=== PATIENT | male | born 1980 | race African-American/Black ===

== ENCOUNTER 2019-11-11 01:42 | Emergency (ER) | payer MEDICAID ==
[~2019-11-11] VITALS: Ht 188 cm; Wt 95.3 kg
[2019-11-11 02:14] VITALS: BP 144/94
[2019-11-11 03:35] LABS: Urine Bacteria NONE SEEN /hpf (None Seen); Urine Blood Negative /uL (Negative); Urine Mucus FEW (None Seen); Urine Specific Gravity 1.018 (1.001-1.035); Urine WBC 21 /hpf (0 - 3)
== END 2019-11-11 03:33 | disposition left against medical advice (07) ==
LOC: ER 01:46
DX: N50.89 Other specified disorders of the male genital organs (principal); Z53.21 Procedure and treatment not carried out due to patient leaving prior to being seen by health care provider
CPT/HCPCS: 81001

== ENCOUNTER 2021-03-05 09:56 | Emergency (ER) | payer MEDICAID ==
[~2021-03-05] VITALS: Ht 188 cm; Wt 94.8 kg
[2021-03-05 12:04] LABS: Basophils # (auto) 0 10 ^3/uL (0-0.2); Basophils % (auto) 0.5 % (0.0-2.0); Eosinophils # (auto) 0.1 10 ^3/uL (0-0.8); Eosinophils % (auto) 0.9 % (0.0-7.0); Hematocrit 49.8 % (41.0-53.0); Hemoglobin 16.7 g/dL (13.5-17.5); Lymphocytes # (auto) 1.4 10 ^3/uL (0.4-5.4); Lymphocytes % (auto) 17.9 % (10.0-50.0); Mean Corpuscular Hemoglobin 30.3 pg (28.0-32.0); Mean Corpuscular Hgb Conc. 33.5 g/dL (32.0-36.0); Mean Corpuscular Volume 90.3 fL (80.0-100.0); Monocytes # (auto) 0.5 10 ^3/uL (0-1.3); Monocytes % (auto) 6.8 % (0.0-12.0); Neutrophils # (auto) 5.8 10 ^3/uL (1.6-8.6); Neutrophils % (auto) 73.9 % (37.0-80.0); Nucleated Red Blood Cells % 0.1 %; Red Blood Cells 5.51 10^6/uL (4.5-5.90); Red Cell Distribution Width 12.6 % (11.8-14.3); White Blood Cell 7.9 10^3/uL (4.4-10.8)
[2021-03-05 12:29] LABS: Albumin 3.7 g/dL (3.4-5.0); Calcium 9.1 mg/dL (8.5-10.1); Potassium 4.7 mmol/L (3.5-5.1)
[2021-03-05 12:34] LABS: BUN/Creatinine Ratio 17.3; Bilirubin, Total 0.3 mg/dL (0.2-1.0); Total Protein 7.2 g/dL (6.4-8.2)
[2021-03-05 13:23] VITALS: BP 131/86
[2021-03-05] MEDS ORDERED: cefTRIAXone SOD 1,000 MG VL IM ONE (15:00)
== END 2021-03-05 15:44 | disposition home or self-care (01) ==
LOC: ER 09:56
DX: N45.1 Epididymitis (principal); F17.210 Nicotine dependence, cigarettes, uncomplicated; F12.10 Cannabis abuse, uncomplicated
CPT/HCPCS: 36415; 76870; 80053; 85025; 96372; 99284; J0696

== ENCOUNTER 2024-10-05 06:42 | Emergency (ER) | payer MEDICAID ==
[~2024-10-05] VITALS: Ht 188 cm; Wt 92.8 kg
[~2024-10-05 06:42] MED LIST: ACET1CAP14 PO; CEPH-510 PO
--- NOTE | 2024-10-05 07:12 | ED.PDOC ---
Musculoskeletal HPI Comments 43-year-old right-hand dominant male with a history of chronic back and shoulder pain presents the ED if for the chief complaint of atraumatic left elbow swelling. Patient states symptoms started five days ago after watching his daughters basketball game at the gym". Patient notes of pain with flexion- extension but no TTP. No other associated modifiers, factors, or symptoms. Denies fevers chills night sweats nausea vomiting redness around the shoulder Denies previous surgeries Numbness/tingling down the arm Denies changes, shortness of breath Time Seen by MD: 07:01 Primary Care Provider: STONE Reviewed Notes: Nurses Notes, Medications, Allergies Allergies: Coded Allergies: NO KNOWN ALLERGIES (Unverified , 07/28/12) Home Meds Active Scripts Acetaminophen (Tylenol) 325 Mg Cap, 325 MG PO Q4HPRN PRN, #30 CAP 0 Refills Take 1-2 caps po q4h prn for pain/fever (Do not exceed 3,000mg of acetaminophen in 24 hours) Prov:LILIBETH VAZQUEZ DINING ROOM SERVER 06/03/22 Cephalexin ( Keflex 500) 500 Mg Cap, 1 CAP PO QID for 7 Days, #28 CAP 0 Refills Prov:LILIBETH VAZQUEZ DINING ROOM SERVER 06/03/22 Information Source: Patient Mode of Arrival: Ambulatory Location: Left Extremity Location: Elbow Timing: Days Prehospital treatment: None Severity: Mild Able to Move Extremity: Yes Bear Weight: Fully Pain: Moderate Hand Dominance: Right Mechanism: Unknown, Spontaneous Circumstances: Spontaneous, Unknown Symptoms: Swelling, Pain DVT Risk Factors: NONE Last Tetanus: Unknown Associated signs and symptoms: Elbow pain Past Medical History PAST MEDICAL HISTORY: Denies Surgical History: Denies all surgeries Family History Family History: Unknown Social History Smoker: Cigarettes, Less Than 1 Pack/Day Alcohol: Occasionally Drugs: Marijuana Lives In: Home Constitutional: denies: chills, diaphoresis, fatigue, fever, malaise, sweats, weakness, others EENTM: denies: blurred vision, double vision, ear bleeding, ear discharge, ear drainage, ear pain, ear ringing, eye pain, eye redness, hearing loss, mouth pain, mouth swelling, nasal discharge, nose bleeding, nose congestion, nose pain, photophobia, tearing, throat pain, throat swelling, voice changes, others Respiratory: denies: cough, hemoptysis, orthopnea, SOB at rest, shortness of breath, SOB with excertion, stridor, wheezing, others Cardiovascular: denies: chest pain, dizzy spells, diaphoresis, Dyspnea on exertion, edema, irregular heart beat, left arm pain, lightheadedness, palpitations, PND, syncope, others Gastrointestinal: denies: abdomen distended, abdominal pain, blood streaked bowels, constipated, diarrhea, dysphagia, difficulty swallowing, hematemesis, melena, nausea, poor appetite, poor fluid intake, rectal bleeding, rectal pain, vomiting, others Genitourinary: denies: burning, dysuria, flank pain, frequency, hematuria, incontinence, penile discharge, penile sore, pain, testicle pain, testicle swelling, urgency, others Neurological: denies: dizziness, fainting, headache, left sided numbness, left sided weakness, numbness, paresthesia, pre-existing deficit, right sided numbness, right sided weakness, seizure, speech problems, tingling, tremors, weakness, others Musculoskeletal: reports: others (Left elbow pain); denies: back pain, gout, joint pain, joint swelling, muscle pain, muscle stiffness, neck pain Integumetry: denies: bruises, change in color, change in hair/nails, dryness, laceration, lesions, lumps, rash, wounds, others Allergic/Immunocompromised: denies: Difficulty Healing, Frequent Infections, Hives, Itching, others Hematologic/Lymphatic: denies: anemia, blood clots, easy bleeding, easy bruising, swollen glands, others Endocrine: denies: excessive hunger, excessive sweating, excessive thirst, excessive urination, flushing, intolerance to cold, intolerance to heat, unexplained weight gain, unexplained weight loss, others Psychiatric: denies: anxiety, bipolar disorder, depression, hopeless, panic disorder, schizophrenia, sleepless, suicidal, others All Other Systems: Reviewed and Negative Physical Exam General Appearance: Mild Distress, Normal HEENT: Normal ENT Inspection, Pharynx Normal, TMs Normal Neck: Full Range of Motion, Non-Tender, Normal, Normal Inspection Respiratory: Chest Non-Tender, Lungs Clear, No Accessory Muscle Use, No Respiratory Distress, Normal Breath Sounds Cardiovascular: No Murmur, No Gallop, Regular Rate/Rhythm Breast Exam: Deferred Gastrointestinal: Non Tender, No Pulsatile Mass, Normal Bowel Sounds, Soft Genitalia: Deferred Pelvic: Deferred Rectal: Deferred Extremities: No calf tenderness, Normal capillary refill, Non-tender, No pedal edema Musculoskeletal : Location: Left Extremity Location: Elbow (Epicondyle: Noticeable swelling, fluctuant to palpation, areas approximately 2 x 2 cm, no TTP, no erythema, full passive and active range of motion of the elbow, radial pulses 2+ and neurovascularly sensation is intact) Apperance: Normal Neurologic: Alert, No Motor Deficits, Normal Affect, Normal Mood, No Sensory Deficits Cerebellar Function: Normal Reflexes: Normal Skin: Dry, Normal Color, Warm Lymphatic: No Adenopathy Was a procedure done? Was a procedure done?: Yes Sedation Sedation?: No Other Procedure Procedure Left elbow bursitis drainage Indication Drainage Anesthetic 1% lidocaine without epi Prep Sterile gloves, 18 gauge needle, 2 x 2 gauze, drainage syringe Success 10 cc's of serosanguineous drainage was removed Informed consent obtained: Yes Risks, benefits, and alternati: Yes Differential Diagnosis EXT Differential Diagnosis: Cellulitis, Deep Vein Thrombosis, Fracture, Sprain, Dislocation, Gout, Contusion, Strain, Rheumatoid, Neurovascular injury, Bursitis X-Ray, Labs, Meds, VS Vital Signs Date Time Temp Pulse Resp B/P (MAP) Pulse Ox O2 Delivery O2 Flow Rate FiO2 10/05/24 09:00 70 17 99 Room Air 10/05/24 09:00 98.4 70 16 117/75 (89) 97 98.4 10/05/24 07:05 98.3 78 16 123/79 (94) 99 98.3 Lab Test 10/05/24 07:11 Range/Units White Blood Count 8.2 4.4-10.8 10^3/uL Red Blood Count 5.37 4.5-5.90 10^6/uL Hemoglobin 17.2 13.5-17.5 g/dL Hematocrit 48.6 41.0-53.0 % Mean Corpuscular Volume 90.6 80.0-100.0 fL Mean Corpuscular Hemoglobin 32.0 28.0-32.0 pg Mean Corpuscular Hemoglobin Concent 35.4 32.0-36.0 g/dL Red Cell Distribution Width 13.3 11.8-14.3 % Platelet Count 265 140-450 10^3/uL Mean Platelet Volume 7.7 6.9-10.8 fL Neutrophils (%) (Auto) 66.3 37.0-80.0 % Lymphocytes (%) (Auto) 23.5 10.0-50.0 % Monocytes (%) (Auto) 8.1 0.0-12.0 % Eosinophils (%) (Auto) 1.4 0.0-7.0 % Basophils (%) (Auto) 0.7 0.0-2.0 % Neutrophils # (Auto) 5.4 1.6-8.6 10 ^3/uL Lymphocytes # (Auto) 1.9 0.4-5.4 10 ^3/uL Monocytes # (Auto) 0.7 0-1.3 10 ^3/uL Eosinophils # (Auto) 0.1 0-0.8 10 ^3/uL Basophils # (Auto) 0.1 0-0.2 10 ^3/uL Nucleated Red Blood Cells 0.0 % Sodium Level 144 136-145 mmol/L Potassium Level 3.5 3.5-5.1 mmol/L Chloride Level 108 H 98-107 mmol/L Carbon Dioxide Level 27 20-31 mmol/L Anion Gap 9 5-15 Blood Urea Nitrogen 12 9-23 mg/dL Creatinine 1.37 H 0.700-1.30 mg/dL Glomerular Filtration Rate Calc 65 >90 mL/min BUN/Creatinine Ratio 8.8 L 10.0-20.0 Serum Glucose 134 H 74-106 mg/dL Uric Acid 6.8 3.7-9.2 mg/dL Calcium Level 9.9 8.7-10.4 mg/dL X-Ray, Labs, Meds, VS Comment 43-year-old right-hand dominant male with a history of chronic back and shoulder pain presents the ED if for the chief complaint of left elbow pain with notable bursitis. Patient arrives alert and oriented, ABC's intact, afebrile, vital signs stable, saturating well in room air CBC was ordered to exclude anemia, blood loss, or infection. BMP was ordered to exclude electrolyte abnormalities, renal failure, dehydration, hyperglycemia Uric acid was ordered to rule out gout: Left elbow x-ray ordered to rule out fracture: Diagnostic imaging ordered by me and results interpreted by radiology :FINDINGS/IMPRESSION: : There is no evidence of acute fracture or dislocation. Soft tissues are unremarkable. Well appearing, vitals wnl, non-toxic Concern for aseptic bursitis likely secondary to repetitive trauma. Low concern for fracture. No erythema. Consider less likely gout or arthritis Differential diagnoses does include septic bursa, but his specific symptoms suggest that aseptic brusitis I have considered a diagnostic aspiration to confirm the diagnosis, but there is a small but real risk of bleeding, infection and little pre-test likelihood of septic joint/bursa, so patient and I agreed to a ice, trial of nsaids, elbow protection. Xray ordered without acute fracture or dislocation per my preliminary read Discussed the results with the patient and the patient vocalized understanding. Patient in agreement with the plan and all questions answered. I also discussed with the patient the limitations of the tests and of the workup performed today, including the chances of false negatives and that examination and treatment that they have received in the Emergency Department is not intended to be a substitute for an effort to provide complete medical care. The imaging, if any, have been interpreted on a preliminary basis pending final reading by the radiologistThe patient was instructed to return immediately to the ED if any changes or worsening of condition should occur.Stressed the importance of outpatient followup and strict return precautions. On reevaluation, patient had symptomatic improvement. Patient is stable for discharge at this time. External notes reviewed. Test results and diagnostic imaging interpreted. All diagnostic findings, discharge care, education and instructions provided Follow-up with PCP in 2 to 3 days Patient verbalized understanding and agreed to treatment plan Vital signs stable, afebrile, no acute distress noted Patient ambulatory with strong steady gait Advised to return precautions for any new or worsening symptoms, return to ER immediately for re-evaluation Patient is aware that the purpose of this visit was for an acute medical emergency requiring emergent stabilization. Chronic conditions, including malignancies have not been ruled out. Patient is instructed to follow up with PCP as directed and discharge instructions for continued care and workup. If unable to arrange follow-up, patient is to return to the emergency department for reassessment. Patient (parent or legal guardian if applicable) was given verbal and written discharge instructions and acknowledges understanding. Additional MDM Review of External, Non-ED records: External records reviewed. Discussion with independent historian (EMS, family) history obtained from the p atient/parents (if applicable) at bedside Chronic conditions affecting care: None Social determinants of health affecting care: None Time of 1ST Reevaluation: 07:32 Reevaluation 1ST: Unchanged Patient Education/Counseling: Diagnosis, Treatment, Need For Follow Up Family Education/Counseling: No Family Present Departure 1 Departure Time of Disposition: 08:44 Impression: Primary Impression: Olecranon bursitis, left elbow Disposition: HOME / SELF CARE / HOMELESS Condition: Stable Critical Care Note Critical Care Time?: No Stability Stability form required: No Heart Score Heart Score: Heart Score Response (Comments) Value History N/A 0 EKG N/A 0 Age N/A 0 Risk Factors N/A 0 Troponin N/A 0 Total 0 I personally scribed for ELSA JULIO CADMIUM PLATER ([email or web address]) on 10/05/24 at 07:12. Elec tronically submitted by Huang Shearer ([email or web address]). I personally scribed for ELSA JULIO CADMIUM PLATER ([email or web address]) on 10/05/24 at 07:37. Elec tronically submitted by Huang Shearer ([email or web address]). I personally scribed for ELSA JULIO CADMIUM PLATER ([email or web address]) on 10/05/24 at 07:39. Elec tronically submitted by Huang Shearer ([email or web address]). I personally scribed for ELSA JULIO CADMIUM PLATER ([email or web address]) on 10/05/24 at 07:58. Elec tronically submitted by Huang Shearer ([email or web address]). I personally scribed for ELSA JULIO CADMIUM PLATER ([email or web address]) on 10/05/24 at 08:34. Elec tronically submitted by Huang Shearer ([email or web address]). I personally scribed for ELSA JULIO F CADMIUM PLATER ([email or web address]) on 10/05/24 at 08:40. Elec tronically submitted by Huang Shearer ([email or web address]). I personally scribed for ELSA JULIO CADMIUM PLATER ([email or web address]) on 10/05/24 at 08:42. Elec tronically submitted by Huang Shearer ([email or web address]). ELSA JULIO CADMIUM PLATER Oct 05, 2024 07:12
[2024-10-05 07:28] LABS: Hematocrit 48.6 % (41.0-53.0); Hemoglobin 17.2 g/dL (13.5-17.5); Mean Corpuscular Hemoglobin 32.0 pg (28.0-32.0); Mean Corpuscular Volume 90.6 fL (80.0-100.0); Nucleated Red Blood Cells % 0.0 %
[2024-10-05 07:32] LABS: Sodium 144 mmol/L (136-145)
[2024-10-05 07:33] LABS: Anion Gap 9 (5-15); Carbon Dioxide 27 mmol/L (20-31)
[2024-10-05 07:34] LABS: Calcium 9.9 mg/dL (8.7-10.4)
[2024-10-05 07:35] LABS: Chloride 108 mmol/L (98-107); Potassium 3.5 mmol/L (3.5-5.1)
--- NOTE | 2024-10-05 07:36 | DVH ---
CLINICAL INDICATION: Pain, elbow TECHNIQUE: XY L ELBOW 3 VIEW XRAY Comparison: None FINDINGS/IMPRESSION: : There is no evidence of acute fracture or dislocation. Soft tissues are unremarkable. Limited lateral view.
[2024-10-05 07:39] LABS: BUN/Creatinine Ratio 8.8 (10.0-20.0); Blood Urea Nitrogen 12 mg/dL (9-23); Glucose 134 mg/dL (74-106)
[2024-10-05 07:51] LABS: Uric Acid 6.8 mg/dL (3.7-9.2)
[2024-10-05 09:00] VITALS: BP 117/75; PULSE 70; RESP 17; TEMP 98.4; O2SAT 99
== END 2024-10-05 09:03 | disposition home or self-care (01) ==
LOC: ER 06:42
DX: M70.22 Olecranon bursitis, left elbow (principal); F17.210 Nicotine dependence, cigarettes, uncomplicated; F12.90 Cannabis use, unspecified, uncomplicated; F10.90 Alcohol use, unspecified, uncomplicated; Y93.89 Activity, other specified; Y90.9 Presence of alcohol in blood, level not specified
CPT/HCPCS: 10060; 20605; 36415; 73080; 80048; 84550; 85025

== ENCOUNTER 2024-11-29 09:33 | Emergency (ER) | payer MEDICAID ==
[~2024-11-29] VITALS: Ht 188 cm; Wt 93.8 kg
[2024-11-29 09:34] VITALS: BP 164/101; PULSE 98; RESP 19; TEMP 97.5; O2SAT 96
--- NOTE | 2024-11-29 10:12 | ED.PDOC ---
Musculoskeletal HPI Comments 43 year old male presents to the ED with a chief complaint of LT shoulder pain onset 1 week. Patient states he has a tear on LT shoulder, is being treated by pain management, surgery has been recommended. Patient states he was carrying heavy bags, noticed LT shoulder pain worsened. Denies any PMHx as well as fall, numbness/tingling, fever, chills, chest pain, shortness of breath. no other symptoms or modifying factors present at this time. Chief Complaint: Upper Extremity Time Seen by MD: 10:00 Primary Care Provider: STONE Reviewed Notes: Medications, Allergies Allergies: Coded Allergies: NO KNOWN ALLERGIES (Unverified , 07/28/12) Home Meds Active Scripts Acetaminophen (Tylenol) 325 Mg Cap, 325 MG PO Q4HPRN PRN, #30 CAP 0 Refills Take 1-2 caps po q4h prn for pain/fever (Do not exceed 3,000mg of acetaminophen in 24 hours) Prov:LILIBETH VAZQUEZ SIGNS AND DISPLAYS SALESPERSON 06/03/22 Cephalexin ( Keflex 500) 500 Mg Cap, 1 CAP PO QID for 7 Days, #28 CAP 0 Refills Prov:LILIBETH VAZQUEZ SIGNS AND DISPLAYS SALESPERSON 06/03/22 Information Source: Patient Mode of Arrival: Ambulatory Location: Left Extremity Location: Shoulder Timing: Weeks Prehospital treatment: None Severity: Moderate Able to Move Extremity: Yes Bear Weight: Limited Pain: Moderate Mechanism: Lifting Circumstances: Spontaneous Onset of Symptoms: After Trauma Symptoms: Pain DVT Risk Factors: NONE History of: Shoulder Fracture Past Medical History PAST MEDICAL HISTORY: Denies Surgical History: Denies all surgeries Family History Family History: Unknown Social History Smoker: Cigarettes, Less Than 1 Pack/Day Alcohol: Occasionally Drugs: Marijuana Lives In: Home Constitutional: denies: chills, diaphoresis, fatigue, fever, malaise, sweats, weakness, others EENTM: denies: blurred vision, double vision, ear bleeding, ear discharge, ear drainage, ear pain, ear ringing, eye pain, eye redness, hearing loss, mouth pain, mouth swelling, nasal discharge, nose bleeding, nose congestion, nose pain, photophobia, tearing, throat pain, throat swelling, voice changes, others Respiratory: denies: cough, hemoptysis, orthopnea, SOB at rest, shortness of breath, SOB with excertion, stridor, wheezing, others Cardiovascular: denies: chest pain, dizzy spells, diaphoresis, Dyspnea on exertion, edema, irregular heart beat, left arm pain, lightheadedness, palpitations, PND, syncope, others Gastrointestinal: denies: abdomen distended, abdominal pain, blood streaked bowels, constipated, diarrhea, dysphagia, difficulty swallowing, hematemesis, melena, nausea, poor appetite, poor fluid intake, rectal bleeding, rectal pain, vomiting, others Genitourinary: denies: burning, dysuria, flank pain, frequency, hematuria, incontinence, penile discharge, penile sore, pain, testicle pain, testicle swelling, urgency, others Neurological: denies: dizziness, fainting, headache, left sided numbness, left sided weakness, numbness, paresthesia, pre-existing deficit, right sided numbness, right sided weakness, seizure, speech problems, tingling, tremors, weakness, others Musculoskeletal: reports: others (LT shoulder pain); denies: back pain, gout, joint pain, joint swelling, muscle pain, muscle stiffness, neck pain Integumetry: denies: bruises, change in color, change in hair/nails, dryness, laceration, lesions, lumps, rash, wounds, others Allergic/Immunocompromised: denies: Difficulty Healing, Frequent Infections, Hives, Itching, others Hematologic/Lymphatic: denies: anemia, blood clots, easy bleeding, easy bruising, swollen glands, others Endocrine: denies: excessive hunger, excessive sweating, excessive thirst, excessive urination, flushing, intolerance to cold, intolerance to heat, unexplained weight gain, unexplained weight loss, others Psychiatric: denies: anxiety, bipolar disorder, depression, hopeless, panic disorder, schizophrenia, sleepless, suicidal, others All Other Systems: Reviewed and Negative Physical Exam General Appearance: No Apparent Distress, Normal HEENT: Normal ENT Inspection, Pharynx Normal, TMs Normal Neck: Full Range of Motion, Non-Tender, Normal, Normal Inspection Respiratory: Chest Non-Tender, Lungs Clear, No Accessory Muscle Use, No Respiratory Distress, Normal Breath Sounds Cardiovascular: No Edema, No JVD, No Murmur, No Gallop, Normal Peripheral Pulses, Regular Rate/Rhythm Breast Exam: Deferred Gastrointestinal: No Organomegaly, Non Tender, No Pulsatile Mass, Normal Bowel Sounds, Soft Genitalia: Epididymis, Deferred Pelvic: Deferred Rectal: Deferred Extremities: No calf tenderness, Normal capillary refill, No pedal edema, Tender (LT shoulder) Musculoskeletal : Apperance: Normal Neurologic: Alert, chemical dependency therapist II-XII nml as Tested, No Motor Deficits, Normal Affect, Normal Mood, No Sensory Deficits Cerebellar Function: Normal Reflexes: Normal Skin: Dry, Normal Color, Warm Lymphatic: No Adenopathy Was a procedure done? Was a procedure done?: No Differential Diagnosis EXT Differential Diagnosis: Fracture, Sprain, Dislocation, Strain X-Ray, Labs, Meds, VS Vital Signs Date Time Temp Pulse Resp B/P (MAP) Pulse Ox O2 Delivery O2 Flow Rate FiO2 11/29/24 09:34 97.5 98 19 164/101 96 97.5 Current Medications Medications (Trade) Dose Ordered Sig/Renae Route Start Time Stop Time Status Last Admin Ketorolac Tromethamine (Toradol Injection) 15 mg ONCE ONCE IM 11/29/24 10:15 11/29/24 10:16 DC 11/29/24 11:42 Time of 1ST Reevaluation: 10:30 Reevaluation 1ST: Unchanged Patient Education/Counseling: Diagnosis, Treatment, Prognosis Family Education/Counseling: No Family Present Departure 1 Departure Time of Disposition: 13:21 (Patient with shoulder strain. We will discharge patient home with outpatient follow up) Impression: Primary Impression: Sprain of left shoulder Qualified Codes: S43.402A - Unspecified sprain of left shoulder joint, initial encounter Disposition: HOME / SELF CARE / HOMELESS Condition: Stable Referrals: BJORN ESTRADA MD Additional Instructions: You sprained your shoulder. It is important to follow up with the regular doctors. You were referred to orthopedics. Please call for an appointment.For pain you can take the followinam: Ibuprofen 400mg with food Noon: Acetaminophen 1000mg 4pm: Ibuprofen 400mg with food 8pm: Acetaminophen 1000mg You should follow up with your regular doctor within one week to ensure you are doing better. If your symptoms worsen or you have any other concerns then please return to the ER. Discharged With: Self Critical Care Note Critical Care Time?: No Stability Stability form required: No Heart Score Heart Score: Heart Score Response (Comments) Value History N/A 0 EKG N/A 0 Age N/A 0 Risk Factors N/A 0 Troponin N/A 0 Total 0 I personally scribed for MARGE SEAY MD ([email or web address]) on 11/29/24 at 10:12. Electronically submitted by Netta Choi ([email or web address]). MARGE SEAY MD Nov 29, 2024 10:12
[2024-11-29] MEDS: KETOROLAC TROMETH 30 MG/ML 1ML VIAL IM ONE (11:42)
== END 2024-11-29 16:39 | disposition left against medical advice (07) ==
LOC: ER 09:33
DX: S43.402A Unspecified sprain of left shoulder joint, initial encounter (principal); F17.210 Nicotine dependence, cigarettes, uncomplicated; X58.XXXA Exposure to other specified factors, initial encounter; Y93.89 Activity, other specified; Y92.89 Other specified places as the place of occurrence of the external cause; Y99.8 Other external cause status
CPT/HCPCS: 96372; 99283; J1885

== ENCOUNTER 2025-01-06 15:36 | Emergency (ER) | payer MEDICAID ==
[~2025-01-06] VITALS: Ht 188 cm; Wt 98.3 kg
[2025-01-06] MEDS ORDERED: CEPH500C PO (16:18)
[2025-01-06] MEDS ORDERED: NAPR-746 PO (16:18)
[2025-01-06] MEDS: KETOROLAC TROMETH 60MG/2ML VIAL IM ONE (16:24)
[2025-01-06 16:32] VITALS: BP 123/83; PULSE 90; RESP 18; TEMP 98.5; O2SAT 98
--- NOTE | 2025-01-07 11:18 | ED.PDOC ---
Musculoskeletal HPI Comments A 44 YEAR OLD MALE PRESENTS TO THE ED WITH COMPLAINT OF CHRONIC LEFT SHOULDER PAIN AND RIGHT ELBOW PAIN AND SWELLING. PATIENT STATES HE HAS A HISTORY OF A LEFT ROTATOR CUFF INJURY AND HAS BEEN EXPERIENCING LEFT SHOULDER PAIN A RESULT OFF AND ON FOR THE PAST 1 MONTH. PATIENT IS REQUESTING A TORADOL INJECTION TO MANAGE HIS CHRONIC LEFT SHOULDER PAIN. PATIENT REPORTS HE HAS ALSO BEEN EXPERIENCING RIGHT ELBOW PAIN WITH SWELLING DUE TO BUMP HIS RIGHT ELBOW TODAY AND IS REQUESTING THAT THE FLUID IN HIS RIGHT ELBOW BE DRAINED. PATIENT DENIES FEVER, CHILLS, SHORTNESS OF BREATH, CHEST PAIN, ABDOMINAL PAIN, NAUSEA, VOMITING, HEADACHE, OR OTHER COMPLAINTS. NO OTHER SYMPTOMS OR MODIFYING FACTORS AT THIS TIME. PATIENT IS ALERT, ORIENTED X 4, AND HAS STEADY GAIT. Chief Complaint: Upper Extremity Time Seen by MD: 15:37 Primary Care Provider: STONE Dia Notes: Nurses Notes, Medications, Allergies Allergies: Coded Allergies: NO KNOWN ALLERGIES (Unverified , 07/28/12) Home Meds Active Scripts Naproxen (Naproxen) 500 Mg Tab, 500 MG PO BID, #30 TAB Prov:ASHWIN BRAUN 01/06/25 Cephalexin Monohydrate (Cephalexin) 500 Mg Cap, 1 CAP PO QID, #32 CAP Prov:ASHWIN BRAUN 01/06/25 Acetaminophen (Tylenol) 325 Mg Cap, 325 MG PO Q4HPRN PRN, #30 CAP 0 Refills Take 1-2 caps po q4h prn for pain/fever (Do not exceed 3,000mg of acetaminophen in 24 hours) Prov:LILIBETH VAZQUEZ [employer] PACKER 06/03/22 Cephalexin ( Keflex 500) 500 Mg Cap, 1 CAP PO QID for 7 Days, #28 CAP 0 Refills Prov:LILIBETH VAZQUEZ [employer] BUBBLE PACKER 06/03/22 Information Source: Patient Mode of Arrival: Ambulatory Location: Left, Right Extremity Location: Elbow (RIGHT ELBOW), Shoulder (LEFT SHOULDER) Timing: Days, Weeks Prehospital treatment: None Severity: Moderate Able to Move Extremity: Yes Bear Weight: Fully Pain: Moderate Mechanism: No Trauma, Spontaneous Circumstances: Spontaneous Symptoms: Swelling, Pain DVT Risk Factors: NONE Last Tetanus: Unknown Associated signs and symptoms: Shoulder pain, Elbow pain Past Medical History Past Medical History (Other): LEFT ROTATOR CUFF INJURE Surgical History: Denies all surgeries Family History Family History: Reviewed,noncontributory to illness Social History Smoker: Cigarettes, Less Than 1 Pack/Day Alcohol: Occasionally Drugs: Marijuana Lives In: Home Constitutional: denies: chills, diaphoresis, fatigue, fever, malaise, sweats, weakness, others EENTM: denies: blurred vision, double vision, ear bleeding, ear discharge, ear drainage, ear pain, ear ringing, eye pain, eye redness, hearing loss, mouth pain, mouth swelling, nasal discharge, nose bleeding, nose congestion, nose pain, photophobia, tearing, throat pain, throat swelling, voice changes, others Respiratory: denies: cough, hemoptysis, orthopnea, SOB at rest, shortness of breath, SOB with excertion, stridor, wheezing, others Cardiovascular: denies: chest pain, dizzy spells, diaphoresis, Dyspnea on exertion, edema, irregular heart beat, left arm pain, lightheadedness, palpitations, PND, syncope, others Gastrointestinal: denies: abdomen distended, abdominal pain, blood streaked bowels, constipated, diarrhea, dysphagia, difficulty swallowing, hematemesis, melena, nausea, poor appetite, poor fluid intake, rectal bleeding, rectal pain, vomiting, others Genitourinary: denies: burning, dysuria, flank pain, frequency, hematuria, incontinence, penile discharge, penile sore, pain, testicle pain, testicle swelling, urgency, others Neurological: denies: dizziness, fainting, headache, left sided numbness, left sided weakness, numbness, paresthesia, pre-existing deficit, right sided numbness, right sided weakness, seizure, speech problems, tingling, tremors, weakness, others Musculoskeletal: reports: joint pain, joint swelling, others (LEFT SHOULDER PAIN, RIGHT ELBOW PAIN WITH SWELLING); denies: back pain, gout, muscle pain, muscle stiffness, neck pain Integumetry: denies: bruises, change in color, change in hair/nails, dryness, laceration, lesions, lumps, rash, wounds, others Allergic/Immunocompromised: denies: Difficulty Healing, Frequent Infections, Hives, Itching, others Hematologic/Lymphatic: denies: anemia, blood clots, easy bleeding, easy bruising, swollen glands, others Endocrine: denies: excessive hunger, excessive sweating, excessive thirst, excessive urination, flushing, intolerance to cold, intolerance to heat, unexplained weight gain, unexplained weight loss, others Psychiatric: denies: anxiety, bipolar disorder, depression, hopeless, panic disorder, schizophrenia, sleepless, suicidal, others All Other Systems: Reviewed and Negative Physical Exam General Appearance: No Apparent Distress, Normal HEENT: Normal ENT Inspection, PERRL/EOMI, Pharynx Normal, TMs Normal Neck: Full Range of Motion, Non-Tender, Normal, Normal Inspection Respiratory: Chest Non-Tender, Lungs Clear, No Accessory Muscle Use, No Respiratory Distress, Normal Breath Sounds Cardiovascular: No Edema, No JVD, No Murmur, No Gallop, Normal Peripheral Pulses, Regular Rate/Rhythm Breast Exam: Deferred Gastrointestinal: No Organomegaly, Non Tender, No Pulsatile Mass, Normal Bowel Sounds, Soft Genitalia: Deferred Pelvic: Deferred Rectal: Deferred Extremities: No calf tenderness, Normal capillary refill, Normal range of motion, No pedal edema, Swelling (ON RIGHT POSTERIOR ELBOW, NOP BONY TENDERNESS AND DEFORMITY, BURSITIS. ), Tender (ON LEFT SHOULDER, NO BONY TENDERNESS, SWELLING AND DEFORMITY. ) Musculoskeletal : Apperance: Normal Neurologic: Alert, audiovisual librarian II-XII nml as Tested, No Motor Deficits, Normal Affect, Normal Mood, No Sensory Deficits Cerebellar Function: Normal Reflexes: Normal Skin: Dry, Normal Color, Warm Peripheral Pulses: 2+ carotid (R), 2+ carotid (L), 2+ Radial (R), 2+ Radial (L) Lymphatic: No Adenopathy Was a procedure done? Was a procedure done?: No Other Procedure Procedure RIGHT ELBOW ASPIRATION Indication RIGHT ELBOW BURSITIS Anesthetic 1% LIDOCAINE Prep PATIENT'S RIGHT ELBOW WAS CLEANED WITH NORMAL SALINE, BETADINE AND ALCOHOL SWABS. Success AN 18 GAUGE NEEDLE WAS USED TO ASPIRATE THE PATIENT'S RIGHT ELBOW. 20 ML OF FLUID WAS DRAINED FROM THE PATIENT'S RIGHT ELBOW. SWELLING AND PAIN WERE NOTED TO HAVE DECREASED. PATIENT TOLERATED WELL. Informed consent obtained: No Risks, benefits, and alternati: Yes Differential Diagnosis EXT Differential Diagnosis: Sprain, Gout, DJD, Strain, Arthritis, Bursitis Other Differential Diagnosis CHRONIC LEFT SHOULDER PAIN, HISTORY OF LEFT ROTATOR CUFF INJURY X-Ray, Labs, Meds, VS Vital Signs Date Time Temp Pulse Resp B/P (MAP) Pulse Ox O2 Delivery O2 Flow Rate FiO2 01/06/25 15:40 98.5 90 18 123/83 98 98.5 Current Medications Medications (Trade) Dose Ordered Sig/Renae Route Start Time Stop Time Status Last Admin Ketorolac Tromethamine (Toradol Injection) 60 mg ONCE ONCE IM 01/06/25 16:00 01/06/25 16:01 DC 01/06/25 16:24 X-Ray, Labs, Meds, VS Comment EXTERNAL MEDICAL RECORDS REVIEWED: [NONE] INDEPENDENT HISTORIANS: [NONE] SOCIAL DETERMINANTS OF HEALTH: [NONE] LABS ORDERED: NONE REVIEWED AND INTERPRETED RESULTS: NONE IMAGING ORDERED: NONE TREATMENTS ORDERED: TORADOL 60 MG IM PROCEDURES PERFORMED: RIGHT ELBOW ASPIRATION, SEE PROCEDURE SECTION. CRITICAL CARE TIME: NONE I HAVE DISCUSSED THE PATIENT WITH THE ATTENDING PHYSICIAN DR. SEAY AND HE AGREES WITH THE PATIENT'S PLAN OF CARE AND DISPOSITION. BASED ON HISTORY OF PRESENT ILLNESS, AND PHYSICAL EXAM, PATIENT WILL BE DISCHARGED HOME. DISCUSSED PLAN FOR DISCHARGE HOME WITH RX [KEFLEX AND NAPROXEN ]. MEDICATION WARNINGS GIVEN. SHARED DECISION MAKING: PATIENT INSTRUCTED TO FOLLOW UP WITH PRIMARY CARE PROVIDER IN 1-2 DAYS FOR RE-EVALUATION OF SYMPTOMS. PATIENT VERBALIZES UNDERSTANDING TO RETURN TO ED FOR NEW OR WORSENING SYMPTOMS OR IF FOLLOW UP WITH PCP CANNOT BE OBTAINED. PATIENT FEELS COMFORTABLE GOING HOME AT THIS TIME. ALL QUESTIONS ADDRESSED AT TIME OF DISCHARGE. Time of 1ST Reevaluation: 17:00 Reevaluation 1ST: Improved Patient Education/Counseling: Diagnosis, Treatment, Need For Follow Up Family Education/Counseling: Diagnosis, Treatment, Need For Follow Up Medical Screening: No EMC Exist At This Time Departure 1 Departure Time of Disposition: 17:00 Impression: Primary Impression: Injury of left rotator cuff Qualified Codes: S46.002A - Unspecified injury of muscle(s) and tendon(s) of the rotator cuff of left shoulder, initial encounter Additional Impression: Bursitis of right elbow Qualified Codes: M70.21 - Olecranon bursitis, right elbow Disposition: 01 HOME / SELF CARE / HOMELESS Condition: Stable Additional Instructions: FOLLOW-UP WITH PCP IN 1 TO 2 DAYS. TAKE MEDICATIONS PRESCRIBED. RETURN TO ED FOR ANY NEW OR WORSENING SYMPTOMS. e-Prescriptions Naproxen (Naproxen) 500 Mg Tab 500 MG PO BID, #30 TAB Prov: ASHWIN BRAUN 01/06/25 Cephalexin Monohydrate (Cephalexin) 500 Mg Cap 1 CAP PO QID, #32 CAP Prov: ASHWIN BRAUN 01/06/25 Discharged With: Self Critical Care Note Critical Care Time?: No Stability Stability form required: No I personally scribed for ASHWIN BRAUN ([email or web address]) on 01/06/25 at 16:06. Electr onically submitted by Lucho Mark (MARINA). I personally scribed for ASHWIN BRAUN ([email or web address]) on 01/06/25 at 16:14. Electr onically submitted by Lucho Mark (MARINA). ASHWIN BRAUN Jan 06, 2025 16:06
== END 2025-01-06 16:39 | disposition home or self-care (01) ==
LOC: ER 15:36
DX: S46.002A Unspecified injury of muscle(s) and tendon(s) of the rotator cuff of left shoulder, initial encounter (principal); M70.21 Olecranon bursitis, right elbow; G89.29 Other chronic pain; F17.210 Nicotine dependence, cigarettes, uncomplicated; X58.XXXA Exposure to other specified factors, initial encounter; Y93.89 Activity, other specified; Y92.89 Other specified places as the place of occurrence of the external cause; Y99.8 Other external cause status
CPT/HCPCS: 20605; 96372; 99283; J1885